=== PATIENT | female | born 1985 | race Caucasian/White ===

== ENCOUNTER 2017-01-10 12:57 | Emergency (ER) | payer MEDICAID ==
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
[2017-01-10 14:02] LABS: CHLORIDE,CL 106 mmol/L (98-110); SODIUM,NA 139 mmol/L (136-146)
[2017-01-10] MEDS ORDERED: Haloperidol Lactate 5 MG/ML SDV IM ONE ×3 (14:33→14:49)
[2017-01-10] MEDS ORDERED: Nicotine 21 MG/24 Hr Patch TRDERM ONE (14:34)
[2017-01-10 14:36] LABS: ACETAMINOPHEN < 3.0 ug/mL
[2017-01-10] MEDS ORDERED: Haloperidol Lactate 5 MG/ML SDV ONE (14:36)
[2017-01-10] MEDS ORDERED: LORazepam 2 MG/ML MDV IVPUSH ONE (14:38)
[2017-01-10] MEDS ORDERED: diphenhydrAMINE 50 MG/ML SDV IVPUSH ONE (14:38)
[2017-01-10] MEDS ORDERED: diphenhydrAMINE 50 MG/ML SDV ONE (14:39)
[2017-01-10] MEDS ORDERED: LORazepam 2 MG/ML MDV ONE (14:39)
[2017-01-10 18:47] VITALS: BP 120/71
== END 2017-01-10 17:13 ==
LOC: MW.ED 12:57
DX: R45.851 Suicidal ideations (principal); F19.10 Other psychoactive substance abuse, uncomplicated; F17.200 Nicotine dependence, unspecified, uncomplicated; Z91.040 Latex allergy status
CPT/HCPCS: 80053; 80305; 81001; 81025; 83735; 84443; 84481; 85025; 93005; 96372; 96374; 96375; 99285; G0480; J1200; J1630; J2060; 36415; 99283

== ENCOUNTER → 2017-01-13 | Outpatient (CLI) | payer MEDICAID | LOC: MW.CHFP 10:46 | PROVIDERS: ATTEND Nurse Practitioner Family | DX: N93.9 Abnormal uterine and vaginal bleeding, unspecified (principal) | CPT/HCPCS: 36415; 84702 ==

== ENCOUNTER → 2017-01-22 | Outpatient (CLI) | payer MEDICAID ==
[2017-01-22 11:10] LABS: CHLORIDE,CL 107 mmol/L (98-110); SODIUM,NA 143 mmol/L (136-146)
== END ==
LOC: MW.CHFP 09:58
PROVIDERS: ATTEND Physician Assistant
DX: R10.9 Unspecified abdominal pain (principal)
CPT/HCPCS: 36415; 80053; 83690; 85025

== ENCOUNTER → 2017-01-27 | Outpatient (CLI) | payer MEDICAID ==
[~2017-01-27] MED LIST: Iopamidol 755 MG/ML 500 ML Multipack Bottle IVPUSH STA
--- NOTE | 2017-01-27 12:34 | CT ---
CT of the abdomen and pelvis with contrast. HISTORY: Pain TECHNIQUE: Axial CT images were obtained of the abdomen and pelvis following administration of 100 m L of Isovue-370 in the right antecubital fossa without complication. Coronal and sagittal reconstruc tions obtained. FINDINGS: The lung bases are clear, no pleural effusion. The liver, spleen, adrenal glands, and pancreas appear normal. The gallbladder is unremarkable. Ther e is no bulky retroperitoneal lymphadenopathy or abdominal ascites. The kidneys enhance and function symmetrically without evidence of obstructive uropathy. The large and small bowel are normal in caliber without evidence of obstruction. No pericolonic infl ammation or stranding. The appendix is normal. The uterus and ovaries are grossly unremarkable. No s ignificant free pelvic fluid. No bulky pelvic lymphadenopathy. Essure devices are noted. No suspicious osseous abnormalities identified. IMPRESSION: No acute findings within the abdomen or pelvis.
== END ==
LOC: MW.DI 09:53
PROVIDERS: ATTEND Physician Assistant
DX: R10.9 Unspecified abdominal pain (principal)
CPT/HCPCS: 74177; Q9967

== ENCOUNTER 2019-10-17 19:31 | Emergency (ER) | payer BC, MEDICAID ==
[2019-10-17] MEDS ORDERED: Sodium Chloride 0.9% 1,000 ML IV ONE (20:00)
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
[2019-10-17] MEDS ORDERED: LORazepam 2 MG/ML SDV IVPUSH ONE (20:18)
[2019-10-17] MEDS ORDERED: cefTRIAXone 1 GM in Premix Bag 1 BAG IV ONE (20:56)
[2019-10-17 21:02] LABS: BLOOD UREA NITROGEN,BUN 15 mg/dL (7.0-18.0); CARBON DIOXIDE,CO2 30.5 mmol/L (21.0-32.0); CHLORIDE,CL 104 mmol/L (98-107); GLUCOSE RANDOM 100 mg/dL (74-106); LIPASE 142 U/L (73-393); POTASSIUM,K 3.9 mmol/L (3.5-5.1); SODIUM,NA 143 mmol/L (136-145)
--- NOTE | 2019-10-17 21:13 | CT ---
INDICATION: Headache TECHNIQUE: CT head without contrast. COMPARISON: Brain MRI dated 05/23/2019 FINDINGS: There is mild frontal, and minimal superior cerebellar, cortical volume loss for age. The ventricles are within normal limits. There is no mass effect or midline shift. There is no loss of gonzalez-white differentiation. There is no evidence of an acute intracranial hemorrhage. No acute calvarial fracture is seen. The visualized paranasal sinuses are clear. There is opacification of few inferior left mastoid tip air cells. The visualized orbits are within normal limits. IMPRESSION: No evidence of an acute intracranial hemorrhage, mass effect or loss of gonzalez-white differentiation. Mild left mastoid tip disease. Dictated by Mateo Trujillo MD @ 10/17/2019 9:12:22 PM Please note that all CT scans at this facility use dose modulation, iterative reconstruction, and/or weight-based dosing when appropriate to reduce radiation dose to as low as reasonably achievable. Dictated by: Mateo Trujillo MD @ 10/17/2019 21:12:33 (Electronically Signed)
[2019-10-17 22:18] VITALS: BP 113/73; PULSE 70
== END 2019-10-17 22:15 | disposition home or self-care (01) ==
LOC: MW.ED 19:31
DX: F10.10 Alcohol abuse, uncomplicated (principal); F19.10 Other psychoactive substance abuse, uncomplicated; N30.01 Acute cystitis with hematuria; S50.11XA Contusion of right forearm, initial encounter; S90.121A Contusion of right lesser toe(s) without damage to nail, initial encounter; F17.210 Nicotine dependence, cigarettes, uncomplicated; Y90.0 Blood alcohol level of less than 20 mg/100 ml; Z91.040 Latex allergy status; W22.03XA Walked into furniture, initial encounter
CPT/HCPCS: 36415; 70450; 80053; 80305; 80320; 81001; 81025; 83690; 85025; 87086; 87088; 87186; 96361; 96365; 96375; 99284; J0696; J2060; J7030; G0480

== ENCOUNTER 2020-06-14 11:17 | Emergency (ER) | payer BC, OTHER ==
--- NOTE | 2020-06-14 11:22 | EDM.PDOC ---
ED HPI GENERAL MEDICAL PROBLEM - General Stated Complaint: MENTAL ASSESEEMENT Time Seen by Provider: 06/14/20 11:18 Source of Information: Reports: Patient History Limitations: Reports: No Limitations - History of Present Illness INITIAL COMMENTS - FREE TEXT/NARRATIVE: 35F PMHx drug abuse, anxiety, psychiatric problems presents for SI and concern for hurting family members. Patient notes that she has struggled with these feelings in the past. She notes that she has been looking for a job and feels like she can't do anything right and has not found a job. She has been argumentative with her and her young daughter. She notes that she has displayed erratic behavior including driving really fast. She is worried she may accidentally harm her family members although she explicitly states she doesn't think she is capable of purposefully hurting them. She does endorse SI and states that she has ruminating thoughts of jumping off of a bridge. She has had these thoughts before and has been hospitalized, but she has never attmpted suicide. She really wants in-patient help and seems to display good insight into her psychiatric problems - Related Data Allergies Allergy/AdvReac Type Severity Reaction Status Date / Time latex Allergy Rash Verified 06/14/20 11:40 Past Medical History HEENT History: Reports: None Cardiovascular History: Reports: None Respiratory History: Reports: None Gastrointestinal History: Reports: None Genitourinary History: Reports: Other (See Below) Other Genitourinary History: ovarian cysts TECHNICAL AID History: Reports: , Other (See Below) Other TECHNICAL AID History: Incompetent cervix Musculoskeletal History: Reports: None Neurological History: Reports: None Psychiatric History: Reports: None Endocrine/Metabolic History: Reports: None Hematologic History: Reports: None Immunologic History: Reports: None Oncologic (Cancer) History: Reports: None Dermatologic History: Reports: None - Infectious Disease History Infectious Disease History: Reports: None - Past Surgical History Head Surgeries/Procedures: Reports: None HEENT Surgical History: Reports: Myringotomy w Tube(s) Cardiovascular Surgical History: Reports: None Respiratory Surgical History: Reports: None GI Surgical History: Reports: None Female Surgical History: Reports: Other (See Below) Endocrine Surgical History: Reports: None Neurological Surgical History: Reports: None Musculoskeletal Surgical History: Reports: None Dermatological Surgical History: Reports: None Social & Family History - Family History Family Medical History: Noncontributory - Caffeine Use Caffeine Use: Reports: Coffee ED ROS GENERAL - Review of Systems Review Of Systems: Comprehensive ROS is negative, except as noted in HPI. ED EXAM, GENERAL - Physical Exam Exam: See Below Exam Limited By: No Limitations General Appearance: Alert, WD/WN, No Apparent Distress Ears: Normal External Exam Nose: Normal Inspection Throat/Mouth: Normal Inspection, Normal Voice, No Airway Compromise Head: Atraumatic, Normocephalic Neck: Normal Inspection Respiratory/Chest: No Respiratory Distress, Lungs Clear, Normal Breath Sounds, No Accessory Muscle Use Cardiovascular: Normal Peripheral Pulses, Regular Rate, Rhythm GI/Abdominal: Soft, Non-Tender Extremities: Normal Inspection Neurological: Alert Skin Exam: Warm, Dry, Intact, Normal Color EKG INTERPRETATION EKG Date: 06/14/20 Time: 12:18 Rhythm: NSR Rate (Beats/Min): 61 [place]: Normal P-Wave: Present QRS: Normal ST-T: Normal QT: Normal TX/PQ Interval: 136 Comparison: NA - No Prior EKG Course - Vital Signs Last Recorded V/S: Last Vital Signs Temp 97 F 06/14/20 11:20 Pulse 75 06/14/20 13:48 Resp 30 H 06/14/20 13:48 BP 123/61 06/14/20 13:48 Pulse Ox 93 L 06/14/20 13:48 - Orders/Labs/Meds Labs: Laboratory Tests 06/14/20 06/14/20 06/14/20 Range/Units 11:31 11:31 11:31 WBC (4.0-11.0) K/uL RBC (4.30-5.90) M/uL Hgb (12.0-16.0) g/dL Hct (36.0-46.0) % MCV (80.0-98.0) fL MCH (27.0-32.0) pg MCHC (31.0-37.0) g/dL RDW Std Deviation (28.0-62.0) fl RDW Coeff of Judith (11.0-15.0) % Plt Count (150-400) K/uL MPV (7.40-12.00) fL Neut % (Auto) (48.0-80.0) % Lymph % (Auto) (16.0-40.0) % [place] % (Auto) (0.0-15.0) % Eos % (Auto) (0.0-7.0) % Baso % (Auto) (0.0-1.5) % Neut # (Auto) (1.4-5.7) K/uL Lymph # (Auto) (0.6-2.4) K/uL [place] # (Auto) (0.0-0.8) K/uL Eos # (Auto) (0.0-0.7) K/uL Baso # (Auto) (0.0-0.1) K/uL Nucleated RBC % /100WBC Nucleated RBCs # K/uL Sodium (136-145) mmol/L Potassium (3.5-5.1) mmol/L Chloride (98-107) mmol/L Carbon Dioxide (21.0-32.0) mmol/L BUN (7.0-18.0) mg/dL Creatinine (0.6-1.0) mg/dL Est Cr Clr Drug Dosing mL/min Estimated GFR (MDRD) ml/min Glucose (74-106) mg/dL Calcium (8.5-10.1) mg/dL Magnesium (1.8-2.4) mg/dL Total Bilirubin (0.2-1.0) mg/dL AST (15-37) IU/L ALT (14-63) IU/L Alkaline Phosphatase (46-116) U/L Total Protein (6.4-8.2) g/dL Albumin (3.4-5.0) g/dL Globulin (2.6-4.0) g/dL Albumin/Globulin Ratio (0.9-1.6) TSH 3rd Generation (0.36-3.74) uIU/mL Urine Color YELLOW Urine Appearance CLEAR Urine pH 8.0 (5.0-8.0) Ur Specific [place] 1.015 (1.001-1.035) Urine Protein NEGATIVE (NEGATIVE) mg/dL Urine Glucose (UA) NEGATIVE (NEGATIVE) mg/dL Urine Ketones NEGATIVE (NEGATIVE) mg/dL Urine Occult Blood NEGATIVE (NEGATIVE) Urine Nitrite NEGATIVE (NEGATIVE) Urine Bilirubin NEGATIVE (NEGATIVE) Urine Urobilinogen 0.2 (<2.0) EU/dL Ur Leukocyte Esterase NEGATIVE (NEGATIVE) Urine HCG, Qual NEGATIVE (NEGATIVE) Salicylates (0-20) mg/dL Urine Opiates Screen NEGATIVE (NEGATIVE) Ur Oxycodone Screen NEGATIVE (NEGATIVE) Urine Methadone Screen NEGATIVE (NEGATIVE) Acetaminophen ug/mL Ur Barbiturates Screen NEGATIVE (NEGATIVE) Ur Phencyclidine Scrn NEGATIVE (NEGATIVE) Ur Amphetamine Screen NEGATIVE (NEGATIVE) U Methamphetamines Scrn NEGATIVE (NEGATIVE) U Benzodiazepines Scrn NEGATIVE (NEGATIVE) U Cocaine Metab Screen NEGATIVE (NEGATIVE) U Marijuana (THC) Screen NEGATIVE (NEGATIVE) Ethyl Alcohol mg/dL SARS-CoV-2 RNA (JUANI) (NEGATIVE) 06/14/20 06/14/20 06/14/20 Range/Units 11:45 11:45 13:11 WBC 7.21 (4.0-11.0) K/uL RBC 4.69 (4.30-5.90) M/uL Hgb 14.2 (12.0-16.0) g/dL Hct 43.2 (36.0-46.0) % MCV 92.1 (80.0-98.0) fL MCH 30.3 (27.0-32.0) pg MCHC 32.9 (31.0-37.0) g/dL RDW Std Deviation 44.9 (28.0-62.0) fl RDW Coeff of Judith 13 (11.0-15.0) % Plt Count 274 (150-400) K/uL MPV 9.90 (7.40-12.00) fL Neut % (Auto) 45.8 L (48.0-80.0) % Lymph % (Auto) 39.7 (16.0-40.0) % [place] % (Auto) 7.9 (0.0-15.0) % Eos % (Auto) 6.2 (0.0-7.0) % Baso % (Auto) 0.4 (0.0-1.5) % Neut # (Auto) 3.3 (1.4-5.7) K/uL Lymph # (Auto) 2.9 H (0.6-2.4) K/uL [place] # (Auto) 0.6 (0.0-0.8) K/uL Eos # (Auto) 0.5 (0.0-0.7) K/uL Baso # (Auto) 0.0 (0.0-0.1) K/uL Nucleated RBC % 0.0 /100WBC Nucleated RBCs # 0 K/uL Sodium 140 (136-145) mmol/L Potassium 4.5 (3.5-5.1) mmol/L Chloride 103 (98-107) mmol/L Carbon Dioxide 28.6 (21.0-32.0) mmol/L BUN 17 (7.0-18.0) mg/dL Creatinine 0.8 (0.6-1.0) mg/dL Est Cr Clr Drug Dosing 72.65 mL/min Estimated GFR (MDRD) > 60.0 ml/min Glucose 75 (74-106) mg/dL Calcium 8.9 (8.5-10.1) mg/dL Magnesium 2.3 (1.8-2.4) mg/dL Total Bilirubin 0.4 (0.2-1.0) mg/dL AST 21 (15-37) IU/L ALT 33 (14-63) IU/L Alkaline Phosphatase 41 L (46-116) U/L Total Protein 7.4 (6.4-8.2) g/dL Albumin 4.0 (3.4-5.0) g/dL Globulin 3.4 (2.6-4.0) g/dL Albumin/Globulin Ratio 1.2 (0.9-1.6) TSH 3rd Generation 0.66 (0.36-3.74) uIU/mL Urine Color Urine Appearance Urine pH (5.0-8.0) Ur Specific [place] (1.001-1.035) Urine Protein (NEGATIVE) mg/dL Urine Glucose (UA) (NEGATIVE) mg/dL Urine Ketones (NEGATIVE) mg/dL Urine Occult Blood (NEGATIVE) Urine Nitrite (NEGATIVE) Urine Bilirubin (NEGATIVE) Urine Urobilinogen (<2.0) EU/dL Ur Leukocyte Esterase (NEGATIVE) Urine HCG, Qual (NEGATIVE) Salicylates 3.0 (0-20) mg/dL Urine Opiates Screen (NEGATIVE) Ur Oxycodone Screen (NEGATIVE) Urine Methadone Screen (NEGATIVE) Acetaminophen <2.0 ug/mL Ur Barbiturates Screen (NEGATIVE) Ur Phencyclidine Scrn (NEGATIVE) Ur Amphetamine Screen (NEGATIVE) U Methamphetamines Scrn (NEGATIVE) U Benzodiazepines Scrn (NEGATIVE) U Cocaine Metab Screen (NEGATIVE) U Marijuana (THC) Screen (NEGATIVE) Ethyl Alcohol <3 mg/dL SARS-CoV-2 RNA (JUANI) NEGATIVE (NEGATIVE) Meds: Medications Discontinued Medications Generic Name Dose Route Start Last Admin Trade Name Sofi PRN Reason Stop Dose Admin Alprazolam 0.5 mg 06/14/20 11:41 06/14/20 11:59 Xanax PO 06/14/20 11:42 0.5 mg NOW ONE Administration - Re-Assessments/Exams Free Text/Narrative Re-Assessment/Exam: 06/14/20 11:50 Will get psych clearance labs and anticipate transfer for psych. 06/14/20 14:21 Psych clearance labs are unremarkable. Patient is medically cleared. Dr. Bridges at [facility] agrees to admit patient under her service. Departure - Departure Time of Disposition: 14:21 Disposition: DC/Tfer to Psych Hosp/Unit 65 Condition: Good Clinical Impression: Depressive disorder - Discharge Information Referrals: PCP,None [Primary Care Provider] - Sepsis Event Note (ED) - Focused Exam Vital Signs: Vital Signs Temp Pulse Resp BP Pulse Ox 06/14/20 13:48 75 30 H 123/61 93 L 06/14/20 12:36 98 121/66 98 06/14/20 12:06 62 17 129/71 100 06/14/20 11:36 64 17 113/77 99 06/14/20 11:20 97 F 70 16 144/75 H 100
[2020-06-14] MEDS ORDERED: ALPRAZolam 0.5 MG Tab PO ONE (11:41)
[2020-06-14 12:18] LABS: ACETAMINOPHEN <2.0 ug/mL
[2020-06-14 12:26] LABS: BLOOD UREA NITROGEN,BUN 17 mg/dL (7.0-18.0); CARBON DIOXIDE,CO2 28.6 mmol/L (21.0-32.0); CHLORIDE,CL 103 mmol/L (98-107); GLUCOSE RANDOM 75 mg/dL (74-106); POTASSIUM,K 4.5 mmol/L (3.5-5.1); SODIUM,NA 140 mmol/L (136-145)
[2020-06-14 13:48] VITALS: BP 123/61; PULSE 75
== END 2020-06-14 14:23 ==
LOC: MW.ED 11:17
DX: F32.9 Major depressive disorder, single episode, unspecified (principal); Z20.828 Contact with and (suspected) exposure to other viral communicable diseases; Z91.040 Latex allergy status
CPT/HCPCS: 36415; 80053; 80305; 80307; 81003; 81025; 83735; 84443; 85025; 87635; 93005; 99285; A9270; 93010; 99284; U0002

== ENCOUNTER 2020-10-21 19:12 | Emergency (ER) | payer MEDICAID, OTHER ==
--- NOTE | 2020-10-21 19:48 | EDM.PDOC ---
ED HPI GENERAL MEDICAL PROBLEM - General Chief Complaint: ENT Problem Stated Complaint: DENTAL PAIN, PUS IN MOUTH Time Seen by Provider: 10/21/20 19:19 Source of Information: Reports: Patient History Limitations: Reports: No Limitations - History of Present Illness INITIAL COMMENTS - FREE TEXT/NARRATIVE: 35-year-old female presents with dental pain. She notes dental pain for 3 weeks to the left upper teeth, constant, moderate, exacerbated with chewing, and no alleviating factors. She has an appointment to see a dentist on 10/29. She was taking amoxicillin from her friend sporadically 2 weeks ago. She has been taking ibuprofen and Tylenol for pain. ROS: A 10-point review of systems, other than pertinent positives and negatives as stated per HPI, is otherwise negative Past medical history: No additional pertinent history Past Surgical history: No additional pertinent history Social history: No additional pertinent history Family history: No additional pertinent history PHYSICAL EXAM General: AOx4, GCS = 15, No distress HEENT: dry mucous membrane, no dental abscess. Tender to palpation to tooth #16 Neck: supple, no meningismus, no Kernig or Brudzinski Cardiac: S1S2 RRR Respiratory: CTAB, no crackles or rales, no wheezing Abdomen: Soft, nontender, no rebound or guarding, nondistended, no pulsatile mass. Back: nontender Musculoskeletal: NVI distally, no deformity Neuro: No focal deficits, CN 2 - 12 WNL. mouth Pain Score (Numeric/FACES): 10 - Related Data Allergies Allergy/AdvReac Type Severity Reaction Status Date / Time latex Allergy Rash Verified 10/21/20 19:17 Home Meds: Home Meds Cariprazine HCl [Vraylar] 3 mg PO DAILY 10/21/20 [History] Naproxen [Naprosyn] 500 mg PO Q12HR #30 tab 10/21/20 [Rx] Penicillin V Potassium [Veetids] 500 mg PO Q8H 10 Days #30 tab 10/21/20 [Rx] Sertraline [Zoloft] 100 mg PO DAILY 10/21/20 [History] hydrOXYzine HCL [hydrOXYzine] 10 mg PO DAILY 10/21/20 [History] Past Medical History HEENT History: Reports: None Cardiovascular History: Reports: None Respiratory History: Reports: None Gastrointestinal History: Reports: None Genitourinary History: Reports: Other (See Below) Other Genitourinary History: ovarian cysts RETORT SETTER History: Reports: , Other (See Below) Other RETORT SETTER History: Incompetent cervix Musculoskeletal History: Reports: None Neurological History: Reports: None Psychiatric History: Reports: None Endocrine/Metabolic History: Reports: None Hematologic History: Reports: None Immunologic History: Reports: None Oncologic (Cancer) History: Reports: None Dermatologic History: Reports: None - Infectious Disease History Infectious Disease History: Reports: None - Past Surgical History Head Surgeries/Procedures: Reports: None HEENT Surgical History: Reports: Myringotomy w Tube(s) Cardiovascular Surgical History: Reports: None Respiratory Surgical History: Reports: None GI Surgical History: Reports: None Female Surgical History: Reports: Other (See Below) Other Female Surgeries/Procedures: cervical mesh Endocrine Surgical History: Reports: None Neurological Surgical History: Reports: None Musculoskeletal Surgical History: Reports: None Dermatological Surgical History: Reports: None Social & Family History - Family History Family Medical History: No Pertinent Family History - Caffeine Use Caffeine Use: Reports: Coffee - Recreational Drug Use Recreational Drug Use: No ED ROS ENT - Review of Systems Review Of Systems: See Below (see dictation) ED EXAM, ENT - Physical Exam Exam: See Below (see dictation) Course - Vital Signs Last Recorded V/S: Last Vital Signs Temp 97.8 F 10/21/20 19:18 Pulse 95 10/21/20 19:18 Resp 18 10/21/20 19:18 BP 142/54 H 10/21/20 19:18 Pulse Ox 93 L 10/21/20 19:18 - Re-Assessments/Exams Free Text/Narrative Re-Assessment/Exam: 10/21/20 19:46 Patient exhibits normal vital signs, there is no abscess for I&D. I advised the patient to return to the ER for reevaluation if symptoms worsened, including fever, worsening pain, or any other worrisome symptoms. I instructed the patient to follow up with their PCP within 2-3 days. MEDICAL DECISION MAKING: I reviewed the patients past medical records, lab and radiographic findings. I discussed the case with the patient. My differential diagnosis included: Dental cavities, abscess. No suspicion for Jake's angina. Departure - Departure Time of Disposition: 19:47 Disposition: Home, Self-Care 01 Condition: Good Clinical Impression: Dental caries - Discharge Information *PRESCRIPTION DRUG MONITORING PROGRAM REVIEWED*: Not Applicable *COPY OF PRESCRIPTION DRUG MONITORING REPORT IN PATIENT ANU: Not Applicable Prescriptions: Naproxen [Naprosyn] 500 mg PO Q12HR #30 tab Penicillin V Potassium [Veetids] 500 mg PO Q8H 10 Days #30 tab Referrals: PCP,None [Primary Care Provider] - Sepsis Event Note (ED) - Evaluation Sepsis Screening Result: No Definite Risk - Focused Exam Vital Signs: Vital Signs Temp Pulse Resp BP Pulse Ox 10/21/20 19:18 97.8 F 95 18 142/54 H 93 L
[2020-10-21] MEDS ORDERED: Naproxen 500 MG Tab PO ONE (19:55)
[2020-10-21] MEDS ORDERED: Penicillin V Potassium 500 MG Tab PO STA (19:55)
[2020-10-21 19:58] VITALS: BP 130/63; PULSE 87
== END 2020-10-21 20:07 | disposition home or self-care (01) ==
LOC: MW.ED 19:12
DX: K02.9 Dental caries, unspecified (principal); Z91.040 Latex allergy status
CPT/HCPCS: 99282; A9270

== ENCOUNTER 2023-08-01 17:18 | Emergency (ER) | payer SELFPAY ==
[2023-08-01 18:56] VITALS: BP 141/96
[2023-08-01 19:08] VITALS: PULSE 92
== END 2023-08-01 19:06 | disposition home or self-care (01) ==
LOC: MW.ED 17:18
DX: K04.7 Periapical abscess without sinus (principal); Z79.899 Other long term (current) drug therapy; Z91.040 Latex allergy status
CPT/HCPCS: 99282; 99283

== ENCOUNTER 2024-12-27 11:05 | Emergency (ER) | payer SELFPAY | END 2024-12-27 12:15 | disposition left against medical advice (07) | LOC: MW.ED 11:05 | DX: Z53.21 Procedure and treatment not carried out due to patient leaving prior to being seen by health care provider (principal) ==

== ENCOUNTER 2025-03-22 10:45 | Emergency (ER) | payer MEDICAID ==
[2025-03-22 11:25] VITALS: BP 122/80; PULSE 82
== END 2025-03-22 12:27 | disposition home or self-care (01) ==
LOC: MW.ED 10:45
DX: J06.9 Acute upper respiratory infection, unspecified (principal); Z91.040 Latex allergy status; Z79.899 Other long term (current) drug therapy; Z75.3 Unavailability and inaccessibility of health-care facilities
CPT/HCPCS: 71045; 87651; 99284; A9270; 99282